=== PATIENT | male | born 1940 | race African-American/Black ===

== ENCOUNTER 2018-01-07 10:51 | Emergency (ER) | payer OTHER ==
[~2018-01-07] VITALS: Ht 180.3 cm; Wt 92.0 kg
[~2018-01-07 10:51] MED LIST: AMLO10TA80 PO; ASCO500T20 PO; DOCU-150 PO; FURO20TA4 PO; LOSA50TA20 PO; PREPARATION H; SENN-76 PO; TAMS0.4C31 PO; VITAMIN C PO; [UNRECOGNIZED DRUG - OTHER]
[2018-01-07 11:19] VITALS: BP 151/70
== END 2018-01-07 17:11 | disposition left against medical advice (07) ==
LOC: ER 10:51
DX: M54.9 Dorsalgia, unspecified (principal); R53.1 Weakness; Z53.21 Procedure and treatment not carried out due to patient leaving prior to being seen by health care provider